=== PATIENT | female | born 1955 | race Two or more races ===

== ENCOUNTER 2022-12-22 09:17 | Emergency (ER) | payer OTHER ==
[~2022-12-22] VITALS: Ht 170.2 cm; Wt 63.6 kg
[2022-12-22 10:28] VITALS: PULSE 90; RESP 17; O2SAT 99
[2022-12-22] MEDS ORDERED: SODIUM CHLORIDE 0.9% 1,000 ML IV ONE (10:30)
[2022-12-22 11:05] LABS: Eosinophils # (auto) 0 10 ^3/uL (0-0.8); Monocytes # (auto) 1.2 10 ^3/uL (0-1.3); Neutrophils # (auto) 8.9 10 ^3/uL (1.6-8.6)
[2022-12-22 11:07] LABS: Basophils # (auto) 0.2 10 ^3/uL (0-0.2); Basophils % (auto) 1.5 % (0.0-2.0); Eosinophils % (auto) 0.3 % (0.0-7.0); Hematocrit 52.2 % (36.0-46.0); Hemoglobin 16.7 g/dL (12.2-16.2); Lymphocytes # (auto) 1.1 10 ^3/uL (0.4-5.4); Lymphocytes % (auto) 9.7 % (10.0-50.0); Mean Corpuscular Hemoglobin 27.9 pg (28.0-32.0); Monocytes % (auto) 10.7 % (0.0-12.0); Neutrophils % (auto) 77.8 % (37.0-80.0); Nucleated Red Blood Cells % 0.5 %; Red Cell Distribution Width 15.8 % (11.8-14.3); White Blood Cell 11.5 10^3/uL (4.4-10.8)
[2022-12-22 11:17] LABS: Alanine Aminotransferase 12 U/L (7-40); Alkaline Phosphatase 104 U/L (46-116); Anion Gap 6.6 (5-15); Aspartate Aminotransferase 12 U/L (13-40); Blood Urea Nitrogen 10 mg/dL (9-23); Calcium 9.9 mg/dL (8.5-10.1); Carbon Dioxide 24.4 mmol/L (20-30); Chloride 106 mmol/L (98-107); Glucose 109 mg/dL (74-106); Potassium 4.5 mmol/L (3.5-5.1); Sodium 137 mmol/L (136-145)
[2022-12-22 11:18] LABS: Albumin 4.8 g/dL (3.2-4.8); Bilirubin, Total 0.5 mg/dL (0.2-1.0); Total Protein 8.1 g/dL (5.7-8.2)
[2022-12-22 11:35] LABS: INR 1.09 (0.9-1.15); Partial Thromboplastin Time 29.9 SEC (24.5-34.5); Prothrombin Time 11.4 sec (9.3-11.8)
[2022-12-22 12:29] LABS: Giant Platelets Moderate; Platelet Estimate Markedly Increased
[2022-12-22 12:30] LABS: Large Platelets MANY
[2022-12-22] MEDS ORDERED: ACETAMINOPHEN 325 MG TAB PO ONE (13:45)
[2022-12-22] MEDS ORDERED: NITROGLYCERIN 2% OINT 1GM PKG TD ONE (13:45)
[2022-12-22] MEDS ORDERED: ASPirin 81 mg TAB PO ONE (13:45)
[2022-12-22 19:35] VITALS: PULSE 67; RESP 16; O2SAT 96
[2022-12-22 21:36] VITALS: BP 140/83; PULSE 61; RESP 11; TEMP 98; O2SAT 95
== END 2022-12-22 22:22 | disposition short-term general hospital (02) ==
LOC: EDBD 09:17 → ER 09:17
DX: R55 Syncope and collapse (principal); I21.4 Non-ST elevation (NSTEMI) myocardial infarction; I10 Essential (primary) hypertension; E11.9 Type 2 diabetes mellitus without complications
CPT/HCPCS: 36415; 70450; 71045; 80053; 83735; 83880; 84484; 85025; 85610; 85730; 93005; 93306; 96360; 99285; J7030